=== PATIENT | female | born 1945 | race Asian ===

== ENCOUNTER 2024-10-03 11:36 | Inpatient (IN) | payer MEDICARE, OTHER ==
[~2024-10-03] VITALS: Ht 152.4 cm; Wt 75.0 kg
[2024-10-03 12:12] LABS: ABG BASE EXCESS 2.1 mmol/L (-2.0-3.0); ABG HCO3 26.2 mmol/L (21.0-28.0); ABG PCO2 39.2 mmHg (32.0-45.0); ABG PH 7.443 (7.350-7.450); ABG PO2 63.8 mmHg (83.0-108.0); ABG SITE RIGHT RADIAL; ABG TOTAL HEMOGLOBIN 12.6 G/dL (12.0-16.0); AaDO2 93.2 mmHg; COHb 1.4 % (0.5-1.5); MetHb 0.3 % (0.0-1.5); O2Hb 89.3 % (94.0-98.0)
[2024-10-03 12:32] LABS: BASOPHILS % (AUTO) 1.4 % (0.0-2.0); DIFFERENTIAL COMMENT 0; EOSINOPHILS # (AUTO) 0.1 K/uL (0.0-0.7); EOSINOPHILS % (AUTO) 3.1 % (0.0-7.0); HEMATOCRIT 37.4 % (31.2-41.9); HEMOGLOBIN 11.9 g/dL (10.9-14.3); LYMPHOCYTES # (AUTO) 0.6 K/uL (0.8-4.8); LYMPHOCYTES % (AUTO) 20.1 % (20.5-51.5); MEAN CORPUSCULAR HEMOGLOBIN 22.8 uug (24.7-32.8); MEAN CORPUSCULAR HGB CONC 32 g/dL (32.3-35.6); MEAN CORPUSCULAR VOLUME 71.6 fL (75.5-95.3); MONOCYTES # (AUTO) 0.4 K/uL (0.1-1.30); MONOCYTES % (AUTO) 14.3 % (0.0-11.0); NEUTROPHILS # (AUTO) 1.8 K/uL (1.8-8.9); NEUTROPHILS % (AUTO) 61.1 % (38.5-71.5); PLATELET COUNT (AUTO) 165 K/uL (179-408); RED BLOOD CELL COUNT(AUTO) 5.22 MIL/uL (3.63-4.92); RED CELL DISTRIBUTION WIDTH 18.2 % (12.3-17.7); WHITE BLOOD COUNT (AUTO) 2.9 K/uL (3.8-11.8)
[2024-10-03 12:35] LABS: CALCIUM 9.1 mg/dL (8.5-10.1); CARBON DIOXIDE 27 mmol/L (21-32); CHLORIDE 104 mmol/L (98-107); CREATININE 0.7 mg/dL (0.6-1.3); GLUCOSE 120 mg/dL (74-106); POTASSIUM 3.7 mmol/L (3.5-5.1); SODIUM SERUM 141 mmol/L (136-145); UREA NITROGEN, BLOOD 17 mg/dL (7-18)
[2024-10-03 12:44] LABS: LACTIC ACID 2.2 mmol/L (0.4-2.0)
[2024-10-03 12:51] LABS: ALANINE AMINOTRANSFERASE 20 U/L (14-59); ALBUMIN 3.5 g/dL (3.4-5.0); ALKALINE PHOSPHATASE 104 U/L (50-136); ASPARTATE AMINOTRANSFERASE 42 U/L (15-37); BILIRUBIN,DIRECT 5.5 mg/dL (0.0-0.2); NT-PRO BNP 414 pg/mL (0-125); TOTAL PROTEIN, SERUM 6.7 g/dL (6.4-8.2)
[2024-10-03 13:09] LABS: LYMPHOCYTES % (MANUAL) 18 % (20-40); NEUTROPHILS % (MANUAL) 57 % (42-75)
[2024-10-03 13:10] LABS: ANISOCYTOSIS 2+; EOSINOPHILS % (MANUAL) 3 % (0-8); HYPOCHROMASIA 2+; MONOCYTES % (MANUAL) 22 % (2-10); OVALOCYTES 1+; PLATELET ESTIMATE ADEQUATE; TARGET CELLS 1+
[2024-10-03] MEDS ORDERED: IOHEXOL 300MG/ML 100 ML INFUS..BTL ONE (13:14)
[2024-10-03] MEDS ORDERED: IV NORMAL SALINE 250 ML IV ONE (13:14)
[2024-10-03] MEDS ORDERED: SWABABLE VALVE TRANSFER SET EA MC ONE (13:14)
[2024-10-03 13:19] LABS: IRON, SERUM 57 ug/dL (50-175)
[2024-10-03] MEDS ORDERED: FURO20TA4 PO (13:35)
[2024-10-03] MEDS ORDERED: PRAV10TA40 (13:35)
[2024-10-03] MEDS ORDERED: LEVE500T19 PO (13:35)
[2024-10-03] MEDS ORDERED: WARF3TAB59 PO (13:35)
[2024-10-03] MEDS ORDERED: OMEP20CA15 PO (13:35)
[2024-10-03] MEDS ORDERED: SPIR25TA6 (13:35)
[2024-10-03] MEDS ORDERED: EMPA10TA PO (13:35)
[2024-10-03] MEDS ORDERED: FUROSEMIDE 20 MG/2 ML VIAL ONE (17:50)
[2024-10-03] MEDS: FUROSEMIDE 20 MG/2 ML VIAL IV ONE (17:57)
[2024-10-03] MEDS ORDERED: ENALAPRILAT DIHYDRATE 1.25 MG/1 ML VIAL IV PRN (20:00)
[2024-10-03] MEDS ORDERED: ONDANSETRON 4 MG/2 ML VIAL IV PRN (20:00)
[2024-10-03 20:51] LABS: BASOPHILS # (AUTO) 0.1 K/UL (0.0-0.2); EOSINOPHILS # (AUTO) 0.1 K/uL (0.0-0.7); EOSINOPHILS % (AUTO) 3.7 % (0.0-7.0); HEMATOCRIT 35.5 % (31.2-41.9); HEMOGLOBIN 11.4 g/dL (10.9-14.3); LYMPHOCYTES # (AUTO) 0.6 K/uL (0.8-4.8); LYMPHOCYTES % (AUTO) 18.9 % (20.5-51.5); MEAN CORPUSCULAR HEMOGLOBIN 22.8 uug (24.7-32.8); MEAN CORPUSCULAR HGB CONC 32 g/dL (32.3-35.6); MEAN CORPUSCULAR VOLUME 71.1 fL (75.5-95.3); MONOCYTES # (AUTO) 0.4 K/uL (0.1-1.30); MONOCYTES % (AUTO) 14.7 % (0.0-11.0); NEUTROPHILS # (AUTO) 1.8 K/uL (1.8-8.9); NEUTROPHILS % (AUTO) 60.7 % (38.5-71.5); PLATELET COUNT (AUTO) 157 K/uL (179-408); RED BLOOD CELL COUNT(AUTO) 4.99 MIL/uL (3.63-4.92); RED CELL DISTRIBUTION WIDTH 18.2 % (12.3-17.7); WHITE BLOOD COUNT (AUTO) 2.9 K/uL (3.8-11.8)
[2024-10-03 20:52] LABS: DIFFERENTIAL COMMENT 1
[2024-10-03 20:59] LABS: CALCIUM 9.1 mg/dL (8.5-10.1); CARBON DIOXIDE 30 mmol/L (21-32); CHLORIDE 104 mmol/L (98-107); CREATININE 0.7 mg/dL (0.6-1.3); GLUCOSE 119 mg/dL (74-106); POTASSIUM 3.9 mmol/L (3.5-5.1); SODIUM SERUM 141 mmol/L (136-145); UREA NITROGEN, BLOOD 16 mg/dL (7-18)
[2024-10-03 21:05] LABS: ALANINE AMINOTRANSFERASE 19 U/L (14-59); ALBUMIN 3.3 g/dL (3.4-5.0); ALKALINE PHOSPHATASE 95 U/L (50-136); ASPARTATE AMINOTRANSFERASE 37 U/L (15-37); BILIRUBIN,TOTAL 8.5 mg/dL (0.2-1.0); LIPASE 166 U/L (16-77); TOTAL PROTEIN, SERUM 6.3 g/dL (6.4-8.2)
[2024-10-03 21:12] VITALS: BP 129/71; TEMP 97.7; O2SAT 95
[2024-10-04] VITALS (7 sets, daily range): BP systolic 110–135; BP diastolic 46–69; TEMP 97.3–98.5; O2SAT 96–100
[2024-10-04 07:03] LABS: BASOPHILS % (AUTO) 1.2 % (0.0-2.0); EOSINOPHILS # (AUTO) 0.1 K/uL (0.0-0.7); EOSINOPHILS % (AUTO) 4.1 % (0.0-7.0); HEMATOCRIT 35.7 % (31.2-41.9); HEMOGLOBIN 11.4 g/dL (10.9-14.3); LYMPHOCYTES # (AUTO) 0.6 K/uL (0.8-4.8); LYMPHOCYTES % (AUTO) 19.2 % (20.5-51.5); MEAN CORPUSCULAR HEMOGLOBIN 22.9 uug (24.7-32.8); MEAN CORPUSCULAR HGB CONC 32 g/dL (32.3-35.6); MEAN CORPUSCULAR VOLUME 71.9 fL (75.5-95.3); MONOCYTES # (AUTO) 0.5 K/uL (0.1-1.30); MONOCYTES % (AUTO) 16.3 % (0.0-11.0); NEUTROPHILS # (AUTO) 1.8 K/uL (1.8-8.9); NEUTROPHILS % (AUTO) 59.2 % (38.5-71.5); PLATELET COUNT (AUTO) 149 K/uL (179-408); RED BLOOD CELL COUNT(AUTO) 4.97 MIL/uL (3.63-4.92); RED CELL DISTRIBUTION WIDTH 18.3 % (12.3-17.7); RETICULOCYTE COUNT 2.5 % (0.5-2.2)
[2024-10-04 07:20] LABS: ALANINE AMINOTRANSFERASE 19 U/L (14-59); ALBUMIN 3.2 g/dL (3.4-5.0); ALKALINE PHOSPHATASE 99 U/L (50-136); ASPARTATE AMINOTRANSFERASE 29 U/L (15-37); BILIRUBIN,TOTAL 8.2 mg/dL (0.2-1.0); CARBON DIOXIDE 29 mmol/L (21-32); CHLORIDE 105 mmol/L (98-107); CHOLESTEROL 96 mg/dL (<200); CREATININE 0.6 mg/dL (0.6-1.3); GLUCOSE 90 mg/dL (74-106); HDL CHOLESTEROL 49 mg/dL (40-60); MAGNESIUM 1.9 mg/dL (1.8-2.4); POTASSIUM 3.7 mmol/L (3.5-5.1); SODIUM SERUM 142 mmol/L (136-145); TOTAL PROTEIN, SERUM 6.2 g/dL (6.4-8.2); TRIGLYCERIDES 49 MG/DL (30-150); UREA NITROGEN, BLOOD 15 mg/dL (7-18)
[2024-10-04 07:25] LABS: DIFFERENTIAL COMMENT 1
[2024-10-04 07:46] LABS: IRON, SERUM 56 ug/dL (50-175)
[2024-10-04 08:02] LABS: THYROID STIMULATING HORMONE 7.548 mIU/mL (0.358-3.740)
[2024-10-04] MEDS: PANTOPRAZOLE SODIUM 40 MG VIAL IV SCH (09:11)
[2024-10-04] MEDS: FUROSEMIDE 40 MG/4 ML VIAL IV SCH (09:11)
[2024-10-04] MEDS ORDERED: levETIRAcetam 500 MG/5 ML LIQUID UDC NG SCH (11:00)
[2024-10-04] MEDS: SPIRONOLACTONE 25 MG TABLET PO SCH (13:04)
[2024-10-04 15:10] LABS: BAND % (MANUAL) 6 % (0-10); EOSINOPHILS % (MANUAL) 3 % (0-8); LYMPHOCYTES % (MANUAL) 19 % (20-40); MONOCYTES % (MANUAL) 17 % (2-10); NEUTROPHILS % (MANUAL) 55 % (42-75)
[2024-10-04 15:11] LABS: ANISOCYTOSIS 2+; HYPOCHROMASIA 2+; PLATELET ESTIMATE DECREASED; TARGET CELLS 2+
[2024-10-04] MEDS: WARFARIN SODIUM 2 MG TABLET PO SCH (23:00)
[2024-10-05 00:22] VITALS: BP 129/72; TEMP 97.2; O2SAT 100
[2024-10-05 07:00] LABS: CALCIUM 9.3 mg/dL (8.5-10.1); CARBON DIOXIDE 28 mmol/L (21-32); CHLORIDE 103 mmol/L (98-107); CREATININE 0.6 mg/dL (0.6-1.3); GLUCOSE 88 mg/dL (74-106); MAGNESIUM 1.9 mg/dL (1.8-2.4); PHOSPHOROUS 3.5 mg/dL (2.5-4.9); POTASSIUM 3.8 mmol/L (3.5-5.1); SODIUM SERUM 140 mmol/L (136-145); UREA NITROGEN, BLOOD 17 mg/dL (7-18)
[2024-10-05 07:54] VITALS: BP 121/41; TEMP 98.4; O2SAT 98
[2024-10-05] MEDS ORDERED: BUME2TAB7 PO (11:09)
[2024-10-05 11:14] VITALS: BP 131/60; TEMP 98.1; O2SAT 99
== END 2024-10-05 13:15 | disposition home health service (06) | DRG 291 ==
LOC: ER 11:36 → TELE3 18:38
PROVIDERS: ADMIT Internal Medicine; ATTEND Internal Medicine
DX: I50.33 Acute on chronic diastolic (congestive) heart failure (principal); G93.41 Metabolic encephalopathy; J96.01 Acute respiratory failure with hypoxia; I48.20 Chronic atrial fibrillation, unspecified; E44.0 Moderate protein-calorie malnutrition; D61.818 Other pancytopenia; D68.9 Coagulation defect, unspecified; M48.56XA Collapsed vertebra, not elsewhere classified, lumbar region, initial encounter for fracture; Z79.01 Long term (current) use of anticoagulants; E88.09 Other disorders of plasma-protein metabolism, not elsewhere classified; E66.9 Obesity, unspecified; Z68.31 Body mass index [BMI] 31.0-31.9, adult; Z79.84 Long term (current) use of oral hypoglycemic drugs; Z79.899 Other long term (current) drug therapy; K21.9 Gastro-esophageal reflux disease without esophagitis; I27.29 Other secondary pulmonary hypertension; I08.3 Combined rheumatic disorders of mitral, aortic and tricuspid valves; E78.5 Hyperlipidemia, unspecified; E11.9 Type 2 diabetes mellitus without complications; J06.9 Acute upper respiratory infection, unspecified
CPT/HCPCS: 36415; 36600; 70030-TC; 71045; 71260; 83550; 83605; 83690; 83735; 84100; 84443; 84484; 85025; 85730; 93307; G0378; J1940; J2470; Q9967